=== PATIENT | male | born 1990 ===

== ENCOUNTER 2019-05-09 15:30 | Emergency (ER) | payer OTHER ==
[2019-05-09] MEDS ORDERED: Acetaminophen/HYDROcodone 325-5 MG Tab PO ONE (15:40)
--- NOTE | 2019-05-09 15:48 | EDM.PDOC ---
ED HPI GENERAL MEDICAL PROBLEM - General Chief Complaint: Upper Extremity Injury/Pain Stated Complaint: POSSIBLE RIGHT BROKEN HAND Time Seen by Provider: 05/09/19 15:35 Source of Information: Reports: Patient History Limitations: Reports: No Limitations - History of Present Illness INITIAL COMMENTS - FREE TEXT/NARRATIVE: HISTORY AND PHYSICAL: History of present illness: Patient is a 28-year-old male presenting to the emergency room for a crushed right hand, specifically his last three digits. Patient states while at work this afternoon his right hand was crushed between a pipe and metal shaver. Patient states that it was not held there for long and was quick quickly released. He has had no previous fractures to his right hand. Patient states that the top of his hand feels numb currently, but has full sensation of distal fingertips. He does state while being examined, his right wrist is starting to hurt. Patient denies any fever, chills, headache, change in vision, syncope or near syncope. Denies any chest pain, back pain, shortness of breath or cough. Denies any GI or symptoms. Patient has been eating and drinking appropriately. Review of systems: As per history of present illness and below otherwise all systems reviewed and negative. Past medical history: As per history of present illness and as reviewed below otherwise noncontributory. Surgical history: As per history of present illness and as reviewed below otherwise noncontributory. Social history: See social history for further information Family history: As per history of present illness and as reviewed below otherwise noncontributory. Physical exam: General: Patient is a 28-year-old well nourished and well groomed male. Alert and orientated. Nontoxic in appearance and in no acute distress. Vital signs are stable and have been reviewed by me. HEENT: Atraumatic, normocephalic, pupils equal and reactive bilaterally, negative for conjunctival pallor or scleral icterus, mucous membranes moist, trachea midline. No drooling or trismus noted. No meningeal signs. No hot potato voice noted. Lungs: Clear to auscultation, breath sounds equal bilaterally, chest nontender. Heart: S1S2, regular rate and rhythm without overt murmur Abdomen: Soft, nondistended, nontender. Skin: Intact, warm, dry. No lesions or rashes noted. Extremities: Right hand tender to palpation, edema along the PIP of the third, fourth, and fifth digits, patient does have risk capillary refill and feeling, otherwise moves all extremities per self without difficulty or deficits, negative for cords or calf pain. Neurovascular unremarkable. Neuro: Awake, alert, oriented. Cranial nerves II through XII unremarkable. Cerebellum unremarkable. Motor and sensory unremarkable throughout. Exam nonfocal. Notes: X-ray shows soft tissue swelling. No acute bony abnormality noted in the right hand or wrist. Fiberglass splint was placed with sling. Encouraged patient to follow-up with hand surgeon or orthopedics. Supportive care measures were reviewed and discussed. Voices understanding and is agreeable to plan of care. Denies any further questions or concerns at this time. Diagnostics: Right hand and right wrist x-ray Therapeutics: [place], sling, fiberglass splint Prescription: Tylenol #3 (#15) Impression: Right Hand Injury Plan: 1. Rest, ice, elevate the affected extremity. Please wear the splint as directed. 2. Tylenol and/or Ibuprofen as needed for pain management. 3. Follow up with the Orthopedic provider as we discussed. Return to the ED as needed and as discussed. Definitive disposition and diagnosis as appropriate pending reevaluation and review of above. Right Hand Pain Score (Numeric/FACES): 8 - Related Data Allergies Allergy/AdvReac Type Severity Reaction Status Date / Time No Known Allergies Allergy Verified 05/09/19 15:37 Home Meds: Home Meds Acetaminophen with Codeine [Tylenol with Codeine #3 Tablet] 1 each PO Q4HR PRN # 15 tablet 05/09/19 [Rx] Review of Systems - Review of Systems Review Of Systems: ROS reveals no pertinent complaints other than HPI. ED EXAM, GENERAL - Physical Exam Exam: See Below (See dictation) Course - Vital Signs Last Recorded V/S: Last Vital Signs Temp 97.0 F 05/09/19 15:33 Pulse 76 05/09/19 15:33 Resp 18 05/09/19 15:33 BP 170/78 H 05/09/19 15:33 Pulse Ox 97 05/09/19 15:33 - Orders/Labs/Meds Orders: Active Orders 24 hr Category Date Time Status DME for Discharge [COMM] Stat Oth 05/09/19 16:05 Ordered Meds: Medications Discontinued Medications Generic Name Dose Route Start Last Admin Trade Name Freq PRN Reason Stop Dose Admin Hydrocodone Bitart/Acetaminophen 1 tab 05/09/19 15:40 05/09/19 15:45 [place] 325-5 Mg PO 05/09/19 15:41 1 tab ONETIME ONE Administration Departure - Departure Time of Disposition: 16:10 Disposition: Home, Self-Care 01 Clinical Impression: Injury of right hand Qualifiers: Encounter type: initial encounter Qualified Code(s): S69.91XA - Unspecified injury of right wrist, hand and finger(s), initial encounter - Discharge Information Prescriptions: Acetaminophen with Codeine [Tylenol with Codeine #3 Tablet] 1 each PO Q4HR PRN # 15 tablet PRN Reason: Pain Forms: ED Department Discharge Additional Instructions: The following information is given to patients seen in the emergency department who are being discharged to home. This information is to outline your options for follow-up care. We provide all patients seen in our emergency department with a follow-up referral. The need for follow-up, as well as the timing and circumstances, are variable depending upon the specifics of your emergency department visit. If you don't have a primary care physician on staff, we will provide you with a referral. We always advise you to contact your personal physician following an emergency department visit to inform them of the circumstance of the visit and for follow-up with them and/or the need for any referrals to a consulting specialist. The emergency department will also refer you to a specialist when appropriate. This referral assures that you have the opportunity for follow-up care with a specialist. All of these measure are taken in an effort to provide you with optimal care, which includes your follow-up. Under all circumstances we always encourage you to contact your private physician who remains a resource for coordinating your care. When calling for follow-up care, please make the office aware that this follow-up is from your recent emergency room visit. If for any reason you are refused follow-up, please contact the [facility] Emergency Department at and asked to speak to the emergency department charge nurse. [facility] [address] [place] [id number] [address] [place] [address] 1. Rest, ice, elevate the affected extremity. Please wear the splint as directed. 2. Tylenol and/or Ibuprofen as needed for pain management. 3. Follow up with the Orthopedic provider as we discussed. Return to the ED as needed and as discussed. - My Orders Last 24 Hours: My Active Orders 05/09/19 16:05 DME for Discharge [COMM] Stat - Assessment/Plan Last 24 Hours: My Active Orders 05/09/19 16:05 DME for Discharge [COMM] Stat
--- NOTE | 2019-05-09 16:15 | CR ---
Right hand: Three views the right hand were obtained. Comparison: No previous right hand study. Soft tissue swelling is identified. Joint spaces are preserved. No fracture, dislocation or other bony abnormality is seen. Impression: Soft tissue swelling. No acute bony abnormality is identified on right hand exam. Diagnostic code #2 MTDD
--- NOTE | 2019-05-09 16:16 | CR ---
Right wrist: Three views of the right wrist were obtained. Comparison: No previous right wrist exam. Joint spaces are preserved. No fracture, dislocation or other bony abnormality is seen. Soft tissue swelling is partially seen within the hand. Impression: 1. Soft tissue swelling is partially seen within the hand. 2. Right wrist study is otherwise unremarkable. Diagnostic code #2 MTDD
== END 2019-05-09 16:37 | disposition home or self-care (01) ==
LOC: MW.ED 15:30
DX: S69.91XA Unspecified injury of right wrist, hand and finger(s), initial encounter (principal); W23.1XXA Caught, crushed, jammed, or pinched between stationary objects, initial encounter; Y99.0 Civilian activity done for income or pay
CPT/HCPCS: 29125; 73110; 73130; 99283; A9270